=== PATIENT | female | born 1960 | race Caucasian/White ===

== ENCOUNTER 2019-07-12 11:11 | Inpatient (IN) | payer OTHER ==
[2019-07-12 11:52] VITALS: BMI 40.2
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
[2019-07-12] MEDS ORDERED: ALBUTEROL SO4 HFA INHALER IH PRN (13:24)
[2019-07-12] MEDS ORDERED: MAGNESIUM HYDROX 2400MG/30ML ORAL SUSPENSION 30 ML CUP PO PRN (13:30)
[2019-07-12] MEDS ORDERED: METHOCARBAMOL 500 MG TABLET PO PRN (13:30)
[2019-07-12] MEDS ORDERED: MENTHOL/PHENOL 1 EACH UD MM PRN (13:30)
[2019-07-12] MEDS ORDERED: MAGNESIUM CITRATE 300 ML BOTTLE PO PRN (13:30)
[2019-07-12] MEDS ORDERED: IBUPROFEN 400 MG TABLET (FP) PO PRN (13:30)
[2019-07-12] MEDS ORDERED: BISMUTH SUBSALICYLATE 262 MG/15 ML BTL PO PRN (13:30)
[2019-07-12] MEDS ORDERED: MAG HYDROX/AL HYDROX/SIMETH 30 ML UNIT-DOSE CUP PO PRN (13:30)
[2019-07-12] MEDS ORDERED: hydrOXYzine PAMOATE 25 MG CAPSULE (FP) PO PRN (13:30)
[2019-07-12] MEDS ORDERED: ACETAMINOPHEN 325 MG TABLET (FP) PO PRN ×2 (13:30)
[2019-07-12] MEDS ORDERED: MELATONIN 5 MG TABLETS PO PRN (13:30)
[2019-07-12] MEDS ORDERED: chlordiazePOXIDE HCL 25 MG CAPSULE PO PRN (13:32)
[2019-07-12] MEDS ORDERED: chlordiazePOXIDE HCL 25 MG CAPSULE PO ONE (14:00)
[2019-07-12] MEDS ORDERED: ASPIRIN 81 MG CHEWABLE TABLETS PO SCH (14:15)
[2019-07-12] MEDS ORDERED: LISINOPRIL 20 MG TABLET (FP) PO SCH (14:15)
[2019-07-12] MEDS: chlordiazePOXIDE HCL 25 MG CAPSULE PO SCH ×2 (16:38→23:56)
[2019-07-12 16:42] VITALS: BP 114/88; PULSE 125; TEMP 101.8
[2019-07-12 17:36] LABS: HEMATOCRIT 37.9 % (32.4-45.2); HEMOGLOBIN 12.5 GM/dL (10.7-15.3); MCH 31.1 pg (25.7-33.7); MCHC 32.9 g/dl (32.0-36.0); MEAN CELL VOLUME 94.3 fl (80-96); MEAN PLT VOLUME 8.1 fl (7.5-11.1); PLATELET COUNT 250 K/MM3 (134-434); RBC 4.02 M/mm3 (3.60-5.2); WHITE BLOOD COUNT 6.1 K/mm3 (4.0-10.0)
--- NOTE | 2019-07-12 17:55 | PN ---
[facility] Progress Note Note: Hx AUD, HTN, Asthma, Scoliosis, Depression Denies hx gallstones or heaptitis. Patient c/o abd pain increasing x 2 past days. Denies N/V. States last BM today. States noted bright blood in stool 4 days ago. OBJ: Abd: Obese, soft, RMQ and RUQ abd tenderness upon palpation. No guarding. No rebound. (+) Sharma's. T= 101.8 - rx'd w/ tylenol. Lungs: CTA Pulse Ox: 98% Vital Signs 07/12/19 07/12/19 07/12/19 11:33 15:01 16:35 Temperature 97.9 F 99.5 F 101.8 F H Pulse Rate 117 H 123 H 125 H Respiratory 20 18 18 Rate Blood Pressure 154/99 136/69 114/88 Lab Results WBC 6.1 K/mm3 (4.0-10.0) 07/12/19 13:55 RBC 4.02 M/mm3 (3.60-5.2) 07/12/19 13:55 Hgb 12.5 GM/dL (10.7-15.3) 07/12/19 13:55 Hct 37.9 % (32.4-45.2) 07/12/19 13:55 MCV 94.3 fl (80-96) 07/12/19 13:55 MCHC 32.9 g/dl (32.0-36.0) 07/12/19 13:55 RDW 15.0 % (11.6-15.6) 07/12/19 13:55 Plt Count 250 K/MM3 (134-434) 07/12/19 13:55 Plan: Refer to ED for evaluation. Report given to Dr. Hutchison.
[2019-07-12 18:09] LABS: ALBUMIN 3.8 g/dl (3.4-5.0); BILIRUBIN,TOTAL 1.5 mg/dL (0.2-1); BLOOD UREA NITROGEN 16.3 mg/dL (7-18); CALCIUM 9.2 mg/dL (8.5-10.1); CREATININE 1.1 mg/dL (0.55-1.3); POTASSIUM 4.2 mmol/L (3.5-5.1); TOT PROT 6.9 g/dl (6.4-8.2)
[2019-07-12] MEDS ORDERED: THIAMINE HCL 100 MG TABLET (FP) PO SCH (22:00)
[2019-07-12] MEDS ORDERED: ATORVASTATIN CA 40 MG TABLET (FP) PO SCH (22:00)
[2019-07-13] MEDS ORDERED: PRENATAL VITAMINS W/ FOLIC ACID TABLET (FP) PO SCH (10:00)
[2019-07-14] MEDS ORDERED: chlordiazePOXIDE HCL 25 MG CAPSULE PO SCH (05:00)
[2019-07-15] MEDS ORDERED: chlordiazePOXIDE HCL 10 MG CAPSULE PO PRN
[2019-07-15] MEDS ORDERED: chlordiazePOXIDE HCL 10 MG CAPSULE PO SCH (05:00)
[2019-07-16] MEDS ORDERED: chlordiazePOXIDE HCL 10 MG CAPSULE PO SCH (05:00)
== END 2019-07-13 08:20 | disposition short-term general hospital (02) | DRG 897 ==
LOC: YASAS 11:11 → Y6N 14:08
PROVIDERS: ADMIT Allergy & Immunology; ATTEND Allergy & Immunology
PROC: HZ2ZZZZ Detoxification Services for Substance Abuse Treatment (ICD-10-PCS; principal; 2019-07-12)
DX: F10.230 Alcohol dependence with withdrawal, uncomplicated (principal); K62.5 Hemorrhage of anus and rectum; Z68.41 Body mass index [BMI] 40.0-44.9, adult; F41.9 Anxiety disorder, unspecified; F32.9 Major depressive disorder, single episode, unspecified; I10 Essential (primary) hypertension; R10.9 Unspecified abdominal pain; I25.2 Old myocardial infarction; M41.9 Scoliosis, unspecified; R00.0 Tachycardia, unspecified; E66.9 Obesity, unspecified; R26.2 Difficulty in walking, not elsewhere classified; Z99.89 Dependence on other enabling machines and devices; Z87.891 Personal history of nicotine dependence
CPT/HCPCS: 36415; 80053; 85027; 86593

== ENCOUNTER 2019-07-12 18:35 | Inpatient (IN) | payer OTHER ==
--- NOTE | 2019-07-12 19:04 | PDOC ---
History of Present Illness - General Chief Complaint: Pain Stated Complaint: ABDOMINAL PAIN,FEVER Time Seen by Provider: 07/12/19 18:59 - History of Present Illness Initial Comments: Zainab Ruffin is a 59yo woman with a PMH of CAD s/p HI (5 years ago), HTN, HLD, asthma, hepC s/p treatment (2004), depression/anxiety, substance abuse ( currently alcohol w/ 2 bottles of wine plus vodka daily, previously cocaine prior to 1994, IV heroin s/p successful taper of methadone 2017) who was sent fo detox with abdominal pain, nausea, vomting, and fever. She states that the pain, nausea, and vomiting have been present for several days. She feels that the pain worsens when using her abdominal muscles e.g when sitting up. She has not noticed any association with eating, vomiting, or bowel movements. She did not realize she had any fever at home, but she was told that she had a temperature of 101F at detox today. She took acetaminophen for the fever, but it did not resolve the pain. Ms Ruffin is not aware of any history of gallstones but does report that she has sludge on imaging in the past. Past History - Past Medical History Allergies/Adverse Reactions: Allergies Allergy/AdvReac Type Severity Reaction Status Date / Time sertraline [From Zoloft] Allergy seizure Verified 07/12/19 18:58 Home Medications: Ambulatory Orders Albuterol Sulfate Inhaler - [Ventolin Hfa Inhaler -] 1 - 2 inh PO QID PRN Aspirin [ASA -] 81 mg PO DAILY 07/12/19 Atorvastatin Calcium 40 mg PO HS 07/12/19 Bupropion HCl [Wellbutrin -] 150 mg PO DAILY 07/12/19 Clonazepam [Klonopin] 1 mg PO TID PRN 07/12/19 Hydroxyzine HCl 50 mg PO DAILY PRN 07/12/19 Lamotrigine [Lamictal] 200 mg PO DAILY 07/12/19 Lisinopril [Prinivil -] 40 mg PO DAILY 07/12/19 Paroxetine HCl [Paxil] 20 mg PO DAILY 07/12/19 Asthma: Yes Cardiac Disorders: No COPD: Yes Diabetes: No GI Disorders: No Disorders: No HTN: Yes Hypercholesterolemia: Yes Kidney Stones: No Psychiatric Problems: Yes (Depression/Anxiety, PTSD) Seizures: No - Reproductive History PID: No - Psycho Social/Smoking Cessation Hx Smoking History: Current every day smoker Have you smoked in the past 12 months: Yes Number of Cigarettes Smoked Daily: 15 If you are a former smoker, when did you quit?: 2 weeks ago as per pt Information on smoking cessation initiated: No Hx Alcohol Use: Yes (h/o alcohol abuse) Drug/Substance Use Hx: No (denies) Hx Substance Use Treatment: Yes Review of Systems - Review of Systems Comments:: General: + fevers, no chills, no weight or appetite change, no malaise HEENT: No changes in vision, no changes in hearing, no congestion, no sore throat CV: No chest pain, no palpitations, no LE edema Pulm: No SOB, no cough, no wheezing GI: +Nausea/vomiting, +abd pain, no change in bowel habits, no melena : No frequency, no urgency, no dysuria Musc: No back pain, no joint swelling, no recent injury Skin: No rash, no lesions, no erythema Endo: No excessive thirst, no heat/cold intolerance Heme: No unusual bruising or bleeding, no swollen glands Neuro: No syncope, no numbness/tingling, no focal weakness Vasc: No claudication Psych: No recent change in mood, no SI or HI *Physical Exam - Vital Signs Last Vital Signs Temp Pulse Resp BP Pulse Ox 98.5 F 113 H 18 116/51 L 98 07/12/19 18:51 07/12/19 18:51 07/12/19 18:51 07/12/19 18:51 07/12/19 18:51 - Physical Exam General: Comfortable, no acute distress HEENT: Atraumatic, PERRL, EOMI, MMM, voice normal, normal neck ROM Cards: RRR, no murmur appreciated Pulm: Comfortable on room air, clear to auscultation bilaterally Abd: Soft, nondistended. TTP in upper abdomen, R>>L. +Sharma's sign Ext: Atraumatic. No LE edema. ROM intact. WWP Skin: Erythematouns rash on extensor surfaces of BUE Neuro: A&Ox3, CN grossly intact, normal speech, motor/sensory grossly intact and symmetric Psych: Mood appropriate to situation ED Treatment Course - LABORATORY CBC & Chemistry Diagram: 07/12/19 19:30 07/12/19 19:30 Medical Decision Making - Medical Decision Making 07/12/19 19:59 Zainab Ruffin is a 59yo woman with a PMH of CAD s/p HI (5 years ago), HTN, HLD, asthma, hepC s/p treatment (2004), depression/anxiety, substance abuse ( currently alcohol w/ 2 bottles of wine plus vodka daily, previously cocaine prior to 1994, IV heroin s/p successful taper of methadone 2017) who was sent fo detox with abdominal pain, nausea, vomiting, and fever for several days. - Tachycardic, fever documented at detox. Septic workup ordered - RUQ pain with +Sharma's sign. Suspect cholecystitis. However, also moderate LUQ and epigastric pain, given h/o alcohol abuse may have pancreatitis. Less likely gastritis. No respiratory symptoms suggesting influenza - Lipase added - Given acetaminophen already. Giving toradol for continued pain - IVF - Imaging to be determined, US vs CT, depending on labs 07/12/19 20:45 - US ordered by Dr Bahena, pt taken for imaging - CBC unremarkable. Trop negative. Lipase WNL. Remainder of labs pending 07/12/19 22:08 - Labs without acute abnormalities other than elevated lactate of 3. T-bili was 1.5 on detox admission, now 1.0. - Abd US completed. No s/s of cholecystitis. Borderline duct dilation at 0.7 - Pt still with significant pain. Morphine given - On additional discussion w/ pt, she reports that she had a frequent cough for about a week after recently quitting smoking. The abdominal pain worsens significantly when she coughs. Possible muscle strain secondary to coughing. - Will repeat lactate. If improved after IVF and pt continues to feel well, will most likely send back to detox. 07/12/19 23:52 - UA w/ bacteria but no notable WBC and leuk esterase negative. Asymptomatic, will not treat - Lactate increased to 4.0 - Will need CT for additional evaluation, additional IVF - Sign out given to Dr Bahena for the remainder of ED care Discussed with Dr Esperanza Chan PGY2 Discharge - Discharge Information Problems reviewed: Yes Clinical Impression/Diagnosis: Upper abdominal pain Condition: Stable Disposition: HOME - Admission No - Follow up/Referral Referrals: [facility] [place] [facility] [Provider Group] - Patient Discharge Instructions Additional Instructions: Discharge Instructions: You were seen in the emergency department for abdominal pain. Your ultrasound and blood tests did not show any concerning findings. Your pain may be due to a muscle strain from your recent coughing. Home Care and Follow Up: - You may use over the counter medications as needed for pain at home. 650- 1000mg acetaminophen (Tylenol) or 600mg ibuprofen (Motrin or Advil) can be used every 6-8 hours. If needed for continued pain, these medications may be alternated every 3-4 hours. For example, if you take ibuprofen at 9am, you may take acetaminophen at noon, ibuprofen at 3pm, etc. - It is strongly recommended that you take ibuprofen with food to help prevent stomach irritation. - Try using an ice pack for 20 minutes every hour or a heating pad for additional pain control. - Do not stop moving around. As much as you can tolerate, continue to do light exercise and stretching exercises. Increase your activity level as much as you can tolerate daily. - If your pain does not improve over the next week, see your regular doctor for follow up. If you need a doctor, you have been given contact information for the [facility]. - Seek immediate medical care if you have significant worsening of your symptoms , pain when you eat, you become dehydrated, or you have any other medical emergency. - Post Discharge Activity
--- NOTE | 2019-07-12 19:26 | PDOC ---
Attending Attestation - Resident Resident Name: Zarina Chan - ED Attending Attestation I have performed the following: I have examined & evaluated the patient, The case was reviewed & discussed with the resident, I agree w/resident's findings & plan - HPI HPI: 07/12/19 21:48 Pt comes with RUQ pain. She is afebrile and she is an alcoholic currently in [facility] detox. Pt has decreased oral intake; she has been moving her bowels and not vomiting. Pt is not jaundiced and she appears well. - Physicial Exam PE: 07/12/19 21:49 Pt is A+Ox3 minimal distress adbominal RUQ discomfort No rebound and no guarding No flank pain. No rashes on trunk. - Medical Decision Making 07/12/19 22:12 Pt has normal labs; BUN/CR prerenal; she will be hydrated and her elevated lactic acid of 2.9 will be repeated. 07/12/19 22:13 Pt has no alcohol level; she was treated with morphine for her abd pain and she is feeling better; she will go back to [facility] after the repeat lactic acid. 07/12/19 22:59 Awaiting repeat lactic acid; ready to go back to [facility] if lactic is normal 07/12/19 23:58 Lactic acid went up to 4.[address] a [address] scan and likely be admitted into the hospital 07/13/19 02:32 Patient Name: AALIYAH PATRICK THIS IS A PRELIMINARY REPORT FROM [facility] DATE OF SERVICE: 2019-07-13 01:10:36 IMAGES: [id number] EXAM: ABDOMEN \T\ PELVIS CT WITH CONTR HISTORY: Abdominal pain COMPARISON: None. FINDINGS: Lung bases are clear. The visualized cardiac chambers are normal size and configuration. Normal liver, gallbladder, pancreas, spleen, adrenal glands and kidneys. There is a small bowel obstruction with small bowel dilated to 3.0 cm. No abscess or free air. Transition point appears to be in the anterior mid pelvis, without mass or hernia. Adhesions are considered. No colonic inflammation or distention with moderate stool in the proximal colon, suggesting early or partial SBO. There is no aortic aneurysm. There is no significant retroperitoneal lymphadenopathy. There is no evidence of appendicitis, although the appendix not clearly visualized. The uterus and adnexal structures are normal. Urinary bladder is unremarkable. There is no pelvic free fluid. No discrete pelvic lymphadenopathy is identified. Small fat containing umbilical and left inguinal hernias are noted. Moderate scoliosis is noted IMPRESSION: Early or partial SBO with mid pelvic transition point, possibly due to adhesions.
[2019-07-12] MEDS ORDERED: KETOROLAC TROMETHAMINE 15 MG/ML VIAL IVPUSH ONE (19:28)
[2019-07-12] MEDS ORDERED: KETOROLAC TROMETHAMINE 15 MG/ML VIAL ONE (19:54)
[2019-07-12 20:03] LABS: BASO % 1.2 % (0-2.0); EOS % 1.8 % (0-4.5); HEMATOCRIT 33.3 % (32.4-45.2); HEMOGLOBIN 10.9 GM/dL (10.7-15.3); LYMPH % 35.2 % (8-40); MCHC 32.7 g/dl (32.0-36.0); MEAN CELL VOLUME 94.8 fl (80-96); MEAN PLT VOLUME 7.6 fl (7.5-11.1); MONO % 12.3 % (3.8-10.2); NEUT % 49.5 % (42.8-82.8); PLATELET COUNT 207 K/MM3 (134-434); RBC 3.52 M/mm3 (3.60-5.2); RDW 14.7 % (11.6-15.6); WHITE BLOOD COUNT 5.2 K/mm3 (4.0-10.0)
[2019-07-12 20:12] LABS: VENOUS PC02 36.1 mmHg (38-52); VENOUS PH 7.42 (7.31-7.41)
[2019-07-12 20:35] LABS: LIPASE 149 U/L (73-393)
[2019-07-12 20:38] LABS: ALBUMIN 3.3 g/dl (3.4-5.0); ALK PHOS 96 U/L (45-117); ANION GAP 8 MMOL/L (8-16); BLOOD UREA NITROGEN 18.5 mg/dL (7-18); CALCIUM 8.7 mg/dL (8.5-10.1); CHLORIDE 110 mmol/L (98-107); CO2 23 mmol/L (21-32); CREATININE 1.5 mg/dL (0.55-1.3); GLUCOSE,RANDOM 146 mg/dL (74-106); POTASSIUM 4.2 mmol/L (3.5-5.1); SGOT/AST 81 U/L (15-37); SGPT/ALT 84 U/L (13-61); SODIUM 141 mmol/L (136-145)
[2019-07-12 20:40] LABS: INR 0.99 (0.83-1.09); PROTHROMBIN TIME (PATIENT) 11.7 SEC (9.7-13.0)
[2019-07-12 20:43] LABS: ACTIVATED PTT 26.1 SECONDS (25.2-36.5)
[2019-07-12] MEDS ORDERED: SODIUM CHLORIDE 0.9% 500 ML INFUS.BAG IV ONE ×2 (20:55→23:59)
[2019-07-12] MEDS ORDERED: MORPHINE SULFATE 2 MG/ML VIAL IVPUSH ONE (21:28)
[2019-07-12] MEDS ORDERED: MORPHINE SULFATE 2 MG/ML VIAL ONE (21:29)
[2019-07-12] MEDS ORDERED: PARoxetine HCL 20 MG TABLET PO ONE (21:36)
[2019-07-12] MEDS ORDERED: lamoTRIgine 100 MG TABLET ONE (21:43)
[2019-07-12] MEDS ORDERED: PARoxetine HCL 10 MG TABLET ONE (21:44)
[2019-07-12] MEDS ORDERED: buPROPion HCL 100 MG TABLET ONE (21:44)
[2019-07-12] MEDS: buPROPion HCL 75 MG TABLET PO SCH (21:48)
[2019-07-12 23:17] LABS: EPI CELLS 10.4 /HPF (0-5/HPF); HYALINE CASTS 30 /lpf (0-8); URINE APPEARANCE CLOUDY; URINE BACTERIA 406.1 /hpf (NEGATIVE); URINE BILIRUBIN 1+ (NEGATIVE); URINE COLOR DK YELLOW; URINE GLUCOSE (UA) NEGATIVE (NEGATIVE); URINE KETONE TRACE (NEGATIVE); URINE LEUK ESTERASE NEGATIVE (NEGATIVE); URINE NITRITE NEGATIVE (NEGATIVE); URINE PROTEIN 1+ (NEGATIVE); URINE RBC 1 /hpf (0-4); URINE WBC 6 /hpf (0-5)
--- NOTE | 2019-07-13 01:03 | PDOC ---
*Physical Exam - Vital Signs Last Vital Signs Temp Pulse Resp BP Pulse Ox 98.4 F 98 H 18 112/63 98 07/12/19 21:35 07/12/19 22:03 07/12/19 22:03 07/12/19 22:03 07/12/19 22:03 - Physical Exam 07/13/19 01:00 GENERAL: Awake, alert, and fully oriented, in no acute distress HEAD: No signs of trauma, normocephalic, atraumatic EYES: PERRLA, EOMI, sclera anicteric, conjunctiva clear ENT: Hearing grossly normal, nares patent, oropharynx clear without exudates. Moist mucosa NECK: Normal ROM, supple, no lymphadenopathy, JVD, or masses LUNGS: No distress, speaks full sentences, clear to auscultation bilaterally HEART: Regular rate and rhythm, normal S1 and S2, no murmurs, rubs or gallops, peripheral pulses normal and equal bilaterally. ABDOMEN: + RUQ/epigastria and RLQ abdominal ttp.Soft, nontender, normoactive bowel sounds. No guarding, no rebound. No masses. Neg CVA ttp. EXTREMITIES : Normal inspection, Normal range of motion, no edema. No clubbing or cyanosis NEUROLOGICAL: Cranial nerves II through XII grossly intact. Normal speech, normal gait, no focal sensorimotor deficits SKIN: Warm, Dry, normal turgor, no rashes or lesions noted ED Treatment Course - LABORATORY CBC & Chemistry Diagram: 07/12/19 19:30 07/12/19 19:30 - ADDITIONAL ORDERS Additional order review: Laboratory Results 07/12/19 07/12/19 07/12/19 22:51 22:45 19:30 PT with INR INR PTT (Actin FS) VBG pH 7.42 H POC VBG pCO2 36.1 L POC VBG pO2 118 H VBG HCO3 23.1 VBG O2 Sat (Ena) 98.5 H VBG Base Excess -0.5 Sodium Potassium Chloride Carbon Dioxide Anion Gap BUN Creatinine Est GFR (CKD-EPI)AfAm Est GFR (CKD-EPI)NonAf Random Glucose Lactic Acid 4.0 H* Calcium Total Bilirubin AST ALT Alkaline Phosphatase Troponin I Total Protein Albumin Lipase Urine Color Dk yellow Urine Appearance Cloudy Urine pH 6.0 Ur Specific [place] 1.037 H Urine Protein 1+ H Urine Glucose (UA) Negative Urine Ketones Trace H Urine Blood Negative Urine Nitrite Negative Urine Bilirubin 1+ H Urine Urobilinogen 1.0 Ur Leukocyte Esterase Negative Urine WBC (Auto) 6 Urine RBC (Auto) 1 Urine Casts (Auto) 30 U Epithel Cells (Auto) 10.4 Urine Bacteria (Auto) 406.1 Alcohol, Quantitative 07/12/19 07/12/19 07/12/19 19:30 19:30 19:30 PT with INR INR PTT (Actin FS) VBG pH POC VBG pCO2 POC VBG pO2 VBG HCO3 VBG O2 Sat (Ena) VBG Base Excess Sodium 141 Potassium 4.2 Chloride 110 H Carbon Dioxide 23 Anion Gap 8 BUN 18.5 H Creatinine 1.5 H Est GFR (CKD-EPI)AfAm 43.74 Est GFR (CKD-EPI)NonAf 37.74 Random Glucose 146 H Lactic Acid 2.9 H* Calcium 8.7 Total Bilirubin 1.0 AST 81 H ALT 84 H Alkaline Phosphatase 96 Troponin I < 0.02 Total Protein 6.0 L Albumin 3.3 L Lipase 149 Urine Color Urine Appearance Urine pH Ur Specific [place] Urine Protein Urine Glucose (UA) Urine Ketones Urine Blood Urine Nitrite Urine Bilirubin Urine Urobilinogen Ur Leukocyte Esterase Urine WBC (Auto) Urine RBC (Auto) Urine Casts (Auto) U Epithel Cells (Auto) Urine Bacteria (Auto) Alcohol, Quantitative < 3 07/12/19 19:30 PT with INR 11.70 INR 0.99 PTT (Actin FS) 26.1 VBG pH POC VBG pCO2 POC VBG pO2 VBG HCO3 VBG O2 Sat (Ena) VBG Base Excess Sodium Potassium Chloride Carbon Dioxide Anion Gap BUN Creatinine Est GFR (CKD-EPI)AfAm Est GFR (CKD-EPI)NonAf Random Glucose Lactic Acid Calcium Total Bilirubin AST ALT Alkaline Phosphatase Troponin I Total Protein Albumin Lipase Urine Color Urine Appearance Urine pH Ur Specific [place] Urine Protein Urine Glucose (UA) Urine Ketones Urine Blood Urine Nitrite Urine Bilirubin Urine Urobilinogen Ur Leukocyte Esterase Urine WBC (Auto) Urine RBC (Auto) Urine Casts (Auto) U Epithel Cells (Auto) Urine Bacteria (Auto) Alcohol, Quantitative 07/12/19 19:30 RBC 3.52 L MCV 94.8 MCHC 32.7 RDW 14.7 MPV 7.6 Neutrophils % 49.5 Lymphocytes % 35.2 Monocytes % 12.3 H Eosinophils % 1.8 Basophils % 1.2 - RADIOLOGY Radiology Studies Ordered: Category Date Time Status ABDOMEN US -LIMITED [US] Stat Ultrasound 07/12/19 19:57 Completed 07/13/19 02:09 Patient Information: : 1960 Order Type: Preliminary Name: CELINA FISCHER Sex: F Study Description: CT ABDOMEN AND PELVIS Modality: CT Location: [facility] Referring Physician: CATHRYN ZAPIEN Comments: Omega Chapman MD wrote on Jul 13, 2019 at 01:53 AM: Referring Physician: CATHRYN ZAPIEN Patient Name: AALIYAH PATRICK THIS IS A PRELIMINARY REPORT FROM IMAGING TOPOGRAPHY TECHNICIAN DATE OF SERVICE: 2019-07-13 01:10:36 IMAGES: [id number] EXAM: ABDOMEN \T\ PELVIS CT WITH CONTR HISTORY: Abdominal pain COMPARISON: None. FINDINGS: Lung bases are clear. The visualized cardiac chambers are normal size and configuration. Normal liver, gallbladder, pancreas, spleen, adrenal glands and kidneys. There is a small bowel obstruction with small bowel dilated to 3.0 cm. No abscess or free air. Transition point appears to be in the anterior mid pelvis, without mass or hernia. Adhesions are considered. No colonic inflammation or distention with moderate stool in the proximal colon, suggesting early or partial SBO. There is no aortic aneurysm. There is no significant retroperitoneal lymphadenopathy. There is no evidence of appendicitis, although the appendix not clearly visualized. The uterus and CONFIDENTIALITY NOTICE: This information is intended only for the use of the recipient(s) named above. If you are not the intended recipient, or a person responsible for delivering it to the intended recipient, you are hereby notified that any disclosure, copying, distribution or use of any of the information contained in or attached to this transmission is STRICTLY PROHIBITED. If you have received this transmission in error, please immediately notify [facility] [employer] [employer] and destroy the original transmission and its attachments without saving them in any manner [address] [facility] [employer] [facility] [address] [place] [address] Phone: [phone]) Fax: Email: [email or web address] [email or web address] Patient Information: : 1960 Order Type: Preliminary Name: CELINA FISCHER Sex: F Study Description: CT ABDOMEN AND PELVIS Modality: CT Location: [facility] Referring Physician: CATHRYN ZAPIEN adnexal structures are normal. Urinary bladder is unremarkable. There is no pelvic free fluid. No discrete pelvic lymphadenopathy is identified. Small fat containing umbilical and left inguinal hernias are noted. Moderate scoliosis is noted IMPRESSION: Early or partial SBO with mid pelvic transition point, possibly due to adhesions. One or more of the following dose reduction techniques were used: automated exposure control, adjustment of the mA and/or kV according to patient size, use of iterative reconstructive technique. THIS DOCUMENT HAS BEEN ELECTRONICALLY SIGNED Antonino Chapman MD 07/13/2019 01:51 NANNETTE Moore. Please call [facility] [employer] As[employer]er [phone]) with questions. Omega Chapman MD Clinicians - Please contact [facility] [employer] [employer] with further questions - Medications Given in the ED: ED Medications Discontinued Medications Generic Name Dose Route Start Last Admin Trade Name Sara PRN Reason Stop Dose Admin Ketorolac Tromethamine 15 mg 07/12/19 19:28 07/12/19 20:00 Toradol Injection - IVPUSH 07/12/19 19:29 15 mg ONCE ONE Administration Lamotrigine 200 mg 07/12/19 21:36 07/12/19 21:48 Lamictal - PO 07/12/19 21:37 200 mg ONCE ONE Administration Morphine Sulfate 2 mg 07/12/19 21:28 07/12/19 21:34 Morphine Sulfate IVPUSH 07/12/19 21:29 2 mg ONCE ONE Administration Paroxetine HCl 20 mg 07/12/19 21:36 07/12/19 21:48 Paxil - PO 07/12/19 21:37 20 mg ONCE ONE Administration Sodium Chloride 1,000 ml 07/12/19 20:55 07/12/19 21:16 Normal Saline - IV 07/12/19 20:56 1,000 ml ONCE ONE Administration Sodium Chloride 1,000 ml 07/12/19 23:59 07/13/19 00:02 Normal Saline - IV 07/13/19 00:00 1,000 ml ONCE ONE Administration Medical Decision Making - Medical Decision Making 07/13/19 01:03 59 yo F with h/o CAD s/p CO, HTN, HLD, Hep C (Treatment 2004), asthma, depression, polysubstance abuse, Etoh abuse, who arrives from [facility] ([facility] detox/[facility]) with one week of RUQ and epigastria abdominal pain, vomiting, and 2 days of fever. HR 125, and Temp 101.8 on arrival. Vitals otherwise unremarkable. + RUQ/epigastria ttp on exam. CBC unremarkable. CMP notable for BUN/Cr: 18.5/1.5 (~1.1). LA~2.9, UA with trace ketones. Etoh negative. Pt. has received Morphine, Toradol, NS 2 L . Pending CTAP for further eval. ED Course: Patient with 2/4 SIRS criteria (tachycardia, febrile). Vanc zosyn Patient with persistent RUQ, and RLQ abdominal ttp on reassessment. Absent rigid abdomen or guarding. Spoke to Jd (biometric technician) about elevated creatinine, and told him that it is ok to proceed with IV contrast, with plan of aggressive post contrast hydration 07/13/19 02:09 CT AP: IMPRESSION: Early or partial SBO with mid pelvic transition point, possibly due to adhesions.There is a small bowel obstruction with small bowel dilated to 3.0 cm. No abscess or free air. Transition point appears to be in the anterior mid pelvis, without mass or hernia. Adhesions are considered. No colonic inflammation or distention with moderate stool in the proximal colon, suggesting early or partial SBO. Patient with h/o 3 c-sections 07/13/19 02:[address] Suresh(surgery senior sales operations manager), [phone], awaiting call back Pt. endorsed to Dr. Suresh 07/13/19 02:24 Plan to admit for dehydration, elevated LA, Sepsis, and possible SBO/partial. 07/13/19 02:50 [facility]. [facility]. Endorsed to Dr. Catalan Discharge - Discharge Information Problems reviewed: Yes Clinical Impression/Diagnosis: Upper abdominal pain, Elevated lactic acid level, SBO (small bowel obstruction) Sepsis Qualifiers: Sepsis type: sepsis due to unspecified organism Sepsis acute organ dysfunction status: unspecified Qualified Code(s): A41.9 - Sepsis, unspecified organism Condition: Stable Disposition: HOME - Admission Yes - Follow up/Referral Referrals: [facility] [place] [Provider Group] - Patient Discharge Instructions Additional Instructions: Discharge Instructions: You were seen in the emergency department for abdominal pain. Your ultrasound and blood tests did not show any concerning findings. Your pain may be due to a muscle strain from your recent coughing. Home Care and Follow Up: - You may use over the counter medications as needed for pain at home. 650- 1000mg acetaminophen (Tylenol) or 600mg ibuprofen (Motrin or Advil) can be used every 6-8 hours. If needed for continued pain, these medications may be alternated every 3-4 hours. For example, if you take ibuprofen at 9am, you may take acetaminophen at noon, ibuprofen at 3pm, etc. - It is strongly recommended that you take ibuprofen with food to help prevent stomach irritation. - Try using an ice pack for 20 minutes every hour or a heating pad for additional pain control. - Do not stop moving around. As much as you can tolerate, continue to do light exercise and stretching exercises. Increase your activity level as much as you can tolerate daily. - If your pain does not improve over the next week, see your regular doctor for follow up. If you need a doctor, you have been given contact information for the [facility]. - Seek immediate medical care if you have significant worsening of your symptoms , pain when you eat, you become dehydrated, or you have any other medical emergency. - Post Discharge Activity
[2019-07-13] MEDS ORDERED: LACTATED RINGERS SOLUTION 1,000 ML/1,000 ML INFUS.BAG IV SCH (01:15)
[2019-07-13] MEDS ORDERED: PIPERACILLIN/TAZOB 4.5 GM 4.5 GM in DEXTROSE 5%-WATER 100 ML IVPB ONE (02:10)
[2019-07-13] MEDS ORDERED: VANCOMYCIN 1 GM in D5W (PRE-DOCKED) 1,000 MG/250 ML IVPB ONE (02:11)
[2019-07-13] MEDS ORDERED: PIPERACILLIN/TAZOB 4.5 GM 4.5 GM/100 ML BAG IVPB ONE (02:16)
[2019-07-13] MEDS ORDERED: VANCOMYCIN 1 GRAM (PRE-DOCKED) 1,000 MG/250 ML BAG IVPB ONE (02:43)
--- NOTE | 2019-07-13 04:52 | PN ---
Teaching Attending Note Name of Resident: Watson Catalan ATTENDING PHYSICIAN STATEMENT I saw and evaluated the patient. I reviewed the resident's note and discussed the case with the resident. I agree with the resident's findings and plan as documented. SUBJECTIVE: 59-year-old woman, chronic alcohol abuser drinks 2 bottles of wine and 1 large bottle of vodka per day, sent from detox to hospital because she was complaining of severe abdominal pain for about 1 day, worse in her right upper quadrant. Patient reports several episodes of nonbloody nonbilious vomiting per day. She is having regular bowel movements with her last BM yesterday morning. Says her stools are formed, nonbloody. OBJECTIVE: Last Vital Signs Temp Pulse Resp BP Pulse Ox 98.2 F 102 H 20 132/52 L 96 07/13/19 04:08 07/13/19 04:08 07/13/19 04:08 07/13/19 04:08 07/13/19 04:08 GENERAL: Well developed, well nourished. Awake and alert. No acute distress.Non-tremulous HEENT: Normocephalic, atraumatic. PERRLA, EOMI. No conjunctival pallor. Sclera are non- icteric. Moist mucous membranes. Oropharynx is clear. NECK: Supple. Full ROM. No JVD. Carotid pulses 2+ and symmetric, without bruits. No thyromegaly. No lymphadenopathy. CARDIOVASCULAR: Regular rate and rhythm. No murmurs, rubs, or gallops. Distal pulses are 2+ and symmetric. PULMONARY: No evidence of respiratory distress. Lungs clear to auscultation bilaterally. No wheezing, rales or rhonchi. ABDOMINAL: Soft. Obese, Right upper quadrant tenderness to palpation, no rebound tenderness. Non-distended. No organomegaly. Normoactive bowel sounds. MUSCULOSKELETAL Normal range of motion at all joints. No bony deformities or tenderness. No CVA tenderness. EXTREMITIES: No cyanosis. No clubbing. No edema. No calf tenderness. SKIN: Left Leg ecchymosis NEUROLOGICAL: Alert, awake, appropriate. Cranial nerves 2-12 intact. No deficits to light touch and temperature in face, upper extremities and lower extremities. No motor deficits in the in face, upper extremities and lower extremities. Normoreflexic in the upper and lower extremities. PSYCHIATRIC: Cooperative. Good eye contact. Appropriate mood and affect. Abnormal Lab Results 07/12/19 07/12/19 07/12/19 19:30 19:30 19:30 RBC 3.52 L Monocytes % 12.3 H VBG pH POC VBG pCO2 POC VBG pO2 VBG O2 Sat (Ena) Chloride 110 H BUN 18.5 H Creatinine 1.5 H Random Glucose 146 H Lactic Acid 2.9 H* AST 81 H ALT 84 H Total Protein 6.0 L Albumin 3.3 L Ur Specific [place] Urine Protein Urine Ketones Urine Bilirubin 07/12/19 07/12/19 07/12/19 19:30 22:45 22:51 RBC Monocytes % VBG pH 7.42 H POC VBG pCO2 36.1 L POC VBG pO2 118 H VBG O2 Sat (Ena) 98.5 H Chloride BUN Creatinine Random Glucose Lactic Acid 4.0 H* AST ALT Total Protein Albumin Ur Specific [place] 1.037 H Urine Protein 1+ H Urine Ketones Trace H Urine Bilirubin 1+ H CT of abdomen pelvis: Lung bases are clear. The visualized cardiac chambers are normal size and configuration. Normal liver, gallbladder, pancreas, spleen, adrenal glands and kidneys. There is a small bowel obstruction with small bowel dilated to 3.0 cm. No abscess or free air. Transition point appears to be in the anterior mid pelvis, without mass or hernia. Adhesions are considered. No colonic inflammation or distention with moderate stool in the proximal colon, suggesting early or partial SBO. There is no aortic aneurysm. There is no significant retroperitoneal lymphadenopathy. There is no evidence of appendicitis, although the appendix not clearly visualized. The uterus and adnexal structures are normal. Urinary bladder is unremarkable. There is no pelvic free fluid. No discrete pelvic lymphadenopathy is identified. Small fat containing umbilical and left inguinal hernias are noted. Moderate scoliosis is noted IMPRESSION: Early or partial SBO with mid pelvic transition point, possibly due to adhesions. ASSESSMENT AND PLAN: 59-year-old woman chronic EtOH abuser with pending EtOH withdrawal with severe abdominal pain, transaminitis, Lactic acidosis, KAVITHA. Uncertain cause of abdominal pain, suspect possible gastritis from chronic EtOH abuse. High lactate is unexplained, no evidence of infection however would treat empirically until blood cultures come back negative. CT of abdomen pelvis suggested possible SBO however clinically patient does not appear to have it as she is having regular bowel movements, soft abdomen, positive bowel sounds. Admit to [facility] Follow-up blood cultures Empiric Zosyn Zofran IV as needed if nausea or vomiting Check electrolytes and replete PRN ID consult Trend lactic acid Patient may benefit from GI evaluation for possible endoscopy to rule out EtOH induced esophagitis versus gastritis Protonix 40 mg IV twice daily IV fluid hydration CIWA protocol Thiamine and folate and multivitamin Banana bag Avoid NSAIDs Librium protocol Urine toxicology screen Chest x-ray Surgery consult to rule out SBO Heparin subcutaneously for DVT prophylaxis
[2019-07-13] MEDS ORDERED: SODIUM CHLORIDE 1,000 ML IV SCH (05:00)
[2019-07-13] MEDS ORDERED: ONDANSETRON 4 MG/2 ML VIAL IVPUSH PRN (05:01)
[2019-07-13] MEDS ORDERED: MORPHINE SULFATE 2 MG/ML VIAL IVPUSH PRN (05:02)
[2019-07-13] MEDS ORDERED: chlordiazePOXIDE HCL 25 MG CAPSULE PO PRN (05:07)
[2019-07-13] MEDS ORDERED: chlordiazePOXIDE HCL 25 MG CAPSULE PO ONE (05:07)
--- NOTE | 2019-07-13 05:49 | HP ---
CHIEF COMPLAINT: abdominal pain PCP: none HISTORY OF PRESENT ILLNESS: 59 yo f w/ pmh CAD, HTN, Asthma, HCV, who comes into the ED from [facility] ( ETOH detox) for worsening abdominal pain and fever. The patient describes a right sided abdominal pain which she has had for the last 3 weeks. The pain has been progressively worsening since then and got acutely worse over the past few days. the pain is also associated with dry heaving and vomiting approx 2 times per day. The patient also endorses 5 days of BRBPR which stopped 2 days ago. She states that she would see blood on her toilet paper after she went to the bathroom, but no blood in the toilet. She endorses drinking 2 large bottles a wine and almost a handle of vodka daily. her last drink was night. In the ED, the patient was found to be afebrile, but tachycardia with a lactic acidosis which peaked at 4 before normalizing with hydration. a CT of the abdomen and pelvis w/ contrast showed a possible early or partial SBO. Surgery was consulted from the ED and will assess the patient in the morning. Recent Travel: none PAST MEDICAL HISTORY: see hpi PAST SURGICAL HISTORY: x2 Social History: Smoking: denies Alcohol: see hpi Drugs: denies Allergies sertraline [From Zoloft] Allergy (Verified 07/12/19 18:58) seizure HOME MEDICATIONS: Home Medications Medication Instructions Recorded Albuterol Sulfate Inhaler - 1 - 2 inh PO QID PRN 07/12/19 [Ventolin Hfa Inhaler -] Aspirin [ASA -] 81 mg PO DAILY 07/12/19 Atorvastatin Calcium 40 mg PO HS 07/12/19 Bupropion HCl [Wellbutrin -] 150 mg PO DAILY 07/12/19 Clonazepam [Klonopin] 1 mg PO TID PRN 07/12/19 Hydroxyzine HCl 50 mg PO DAILY PRN 07/12/19 Lamotrigine [Lamictal] 200 mg PO DAILY 07/12/19 Lisinopril [Prinivil -] 40 mg PO DAILY 07/12/19 Paroxetine HCl [Paxil] 20 mg PO DAILY 07/12/19 REVIEW OF SYSTEMS CONSTITUTIONAL: Absent: fever, chills, diaphoresis, generalized weakness, malaise, loss of appetite, weight change HEENT: Absent: rhinorrhea, nasal congestion, throat pain, throat swelling, difficulty swallowing, mouth swelling, ear pain, eye pain, visual changes CARDIOVASCULAR: Absent: chest pain, syncope, palpitations, irregular heart rate, lightheadedness , peripheral edema RESPIRATORY: Absent: cough, shortness of breath, dyspnea with exertion, orthopnea, wheezing, stridor, hemoptysis GASTROINTESTINAL: Absent: constipation, GENITOURINARY: Absent: dysuria, frequency, urgency, hesitancy, hematuria, flank pain, genital pain MUSCULOSKELETAL: Absent: myalgia, arthralgia, joint swelling, back pain, neck pain SKIN: Absent: rash, itching, pallor HEMATOLOGIC/IMMUNOLOGIC: Absent: easy bleeding, easy bruising, lymphadenopathy, frequent infections ENDOCRINE: Absent: unexplained weight gain, unexplained weight loss, heat intolerance, cold intolerance NEUROLOGIC: Absent: headache, focal weakness or paresthesias, dizziness, unsteady gait, seizure, mental status changes, bladder or bowel incontinence PSYCHIATRIC: Absent: anxiety, depression, suicidal or homicidal ideation, hallucinations. PHYSICAL EXAMINATION Vital Signs - 24 hr 07/12/19 07/12/19 07/12/19 18:51 19:51 21:35 Temperature 98.5 F 99.9 F H 98.4 F Pulse Rate 113 H Pulse Rate [ Right Radial] Respiratory 18 Rate Blood Pressure 116/51 L Blood Pressure [Left Arm] O2 Sat by Pulse 98 Oximetry (%) 07/12/19 07/13/19 22:03 04:08 Temperature 98.2 F Pulse Rate Pulse Rate [ 98 H 102 H Right Radial] Respiratory 18 20 Rate Blood Pressure Blood Pressure 112/63 132/52 L [Left Arm] O2 Sat by Pulse 98 96 Oximetry (%) GENERAL: Awake, alert, and fully oriented, in no acute distress. HEAD: Normal with no signs of trauma. NECK: Normal range of motion, supple without lymphadenopathy, JVD, or masses. LUNGS: Breath sounds equal, clear to auscultation bilaterally. No wheezes, and no crackles. No accessory muscle use. HEART: Regular rate and rhythm, normal S1 and S2 without murmur, rub or gallop. ABDOMEN: Soft, normoactive bowel sounds. The abdomen in obese. There is tenderness to palpation all across the abdomen with the most tenderness being in the RUQ. No rebound. LOWER EXTREMITIES: 2+ pulses, warm, well-perfused. No calf tenderness. No peripheral edema. NEUROLOGICAL: Cranial nerves II-X intact. Normal speech. SKIN: Warm, dry, normal turgor, no rashes or lesions noted, normal capillary refill. Laboratory Results - last 24 hr 07/12/19 07/12/19 07/12/19 19:30 19:30 19:30 WBC 5.2 RBC 3.52 L Hgb 10.9 Hct 33.3 MCV 94.8 MCH 31.0 MCHC 32.7 RDW 14.7 Plt Count 207 MPV 7.6 Absolute Neuts (auto) 2.6 Neutrophils % 49.5 Lymphocytes % 35.2 Monocytes % 12.3 H Eosinophils % 1.8 Basophils % 1.2 Nucleated RBC % 0 PT with INR 11.70 INR 0.99 PTT (Actin FS) 26.1 VBG pH POC VBG pCO2 POC VBG pO2 VBG HCO3 VBG O2 Sat (Ena) VBG Base Excess Sodium Potassium Chloride Carbon Dioxide Anion Gap BUN Creatinine Est GFR (CKD-EPI)AfAm Est GFR (CKD-EPI)NonAf Random Glucose Lactic Acid Calcium Total Bilirubin AST ALT Alkaline Phosphatase Troponin I < 0.02 Total Protein Albumin Lipase 149 Urine Color Urine Appearance Urine pH Ur Specific [place] Urine Protein Urine Glucose (UA) Urine Ketones Urine Blood Urine Nitrite Urine Bilirubin Urine Urobilinogen Ur Leukocyte Esterase Urine WBC (Auto) Urine RBC (Auto) Urine Casts (Auto) U Epithel Cells (Auto) Urine Bacteria (Auto) Alcohol, Quantitative 07/12/19 07/12/19 07/12/19 19:30 19:30 19:30 WBC RBC Hgb Hct MCV MCH MCHC RDW Plt Count MPV Absolute Neuts (auto) Neutrophils % Lymphocytes % Monocytes % Eosinophils % Basophils % Nucleated RBC % PT with INR INR PTT (Actin FS) VBG pH 7.42 H POC VBG pCO2 36.1 L POC VBG pO2 118 H VBG HCO3 23.1 VBG O2 Sat (Ena) 98.5 H VBG Base Excess -0.5 Sodium 141 Potassium 4.2 Chloride 110 H Carbon Dioxide 23 Anion Gap 8 BUN 18.5 H Creatinine 1.5 H Est GFR (CKD-EPI)AfAm 43.74 Est GFR (CKD-EPI)NonAf 37.74 Random Glucose 146 H Lactic Acid 2.9 H* Calcium 8.7 Total Bilirubin 1.0 AST 81 H ALT 84 H Alkaline Phosphatase 96 Troponin I Total Protein 6.0 L Albumin 3.3 L Lipase Urine Color Urine Appearance Urine pH Ur Specific [place] Urine Protein Urine Glucose (UA) Urine Ketones Urine Blood Urine Nitrite Urine Bilirubin Urine Urobilinogen Ur Leukocyte Esterase Urine WBC (Auto) Urine RBC (Auto) Urine Casts (Auto) U Epithel Cells (Auto) Urine Bacteria (Auto) Alcohol, Quantitative < 3 07/12/19 07/12/19 07/13/19 22:45 22:51 02:34 WBC RBC Hgb Hct MCV MCH MCHC RDW Plt Count MPV Absolute Neuts (auto) Neutrophils % Lymphocytes % Monocytes % Eosinophils % Basophils % Nucleated RBC % PT with INR INR PTT (Actin FS) VBG pH POC VBG pCO2 POC VBG pO2 VBG HCO3 VBG O2 Sat (Ena) VBG Base Excess Sodium Potassium Chloride Carbon Dioxide Anion Gap BUN Creatinine Est GFR (CKD-EPI)AfAm Est GFR (CKD-EPI)NonAf Random Glucose Lactic Acid 4.0 H* 1.4 Calcium Total Bilirubin AST ALT Alkaline Phosphatase Troponin I Total Protein Albumin Lipase Urine Color Dk yellow Urine Appearance Cloudy Urine pH 6.0 Ur Specific [place] 1.037 H Urine Protein 1+ H Urine Glucose (UA) Negative Urine Ketones Trace H Urine Blood Negative Urine Nitrite Negative Urine Bilirubin 1+ H Urine Urobilinogen 1.0 Ur Leukocyte Esterase Negative Urine WBC (Auto) 6 Urine RBC (Auto) 1 Urine Casts (Auto) 30 U Epithel Cells (Auto) 10.4 Urine Bacteria (Auto) 406.1 Alcohol, Quantitative ASSESSMENT/PLAN: 59 yo f w/ pmh CAD, HTN, Asthma, HCV, who comes into the ED from [facility] ( ETOH detox) for worsening abdominal pain and fever. #abdominal pain, nausea and vomiting likely 2/2 etoh gastritis r/o SBO -afebrile in the ED -no leukocytosis -protonix 40 bid IV -Zofran 4mg IV prn nausea -morphine 2mg q4h pain -NS @ 75 -surgery to assess in the AM -check flu swab #ETOH dependence -librium protocol -po thiamine -po folate -utox #hematochezia -patient has not has ssx in 2 days. -Hb stable -will check FOBT -consider GI eval if FOBT positive #Lactic acidosis -peaked at 4. -now normalized after hydration -will rpt with 6am labs #FEN -NS @ 75 -lytes wnl -NPO #prophy -SCDs until FOBT back -protonix #dispo -admit med surg Visit type - Emergency Visit Emergency Visit: Yes ED Registration Date: 07/13/19 Care time: The patient presented to the Emergency Department on the above date and was hospitalized for further evaluation of their emergent condition. - New Patient This patient is new to me today: Yes Date on this admission: 07/13/19 - Critical Care Critical Care patient: No ATTENDING PHYSICIAN STATEMENT I saw and evaluated the patient. I reviewed the resident's note and discussed the case with the resident. I agree with the resident's findings and plan as documented. SUBJECTIVE: OBJECTIVE: ASSESSMENT AND PLAN:
[2019-07-13] MEDS: chlordiazePOXIDE HCL 25 MG CAPSULE PO SCH ×2 (05:58→11:07)
[2019-07-13] MEDS: LACTATED RINGERS SOLUTION 1,000 ML/1,000 ML INFUS.BAG IV SCH ×2 (06:36→15:58)
[2019-07-13 08:34] VITALS: BMI 41.3
[2019-07-13 09:34] LABS: COCAINE, UR NEGATIVE ng/ml (CUTOFF=300); METHADONE, UR NEGATIVE ng/ml (CUTOFF=300); PHENCYCLIDINE,URINE NEGATIVE ng/ml (CUTOFF=25); URINE AMPHETAMINES NEGATIVE ng/ml (CUTOFF=500); URINE BARBITURATES NEGATIVE ng/ml (CUTOFF=200)
[2019-07-13 09:52] LABS: OPIATES, URI POSITIVE ng/ml (CUTOFF=300); URINE BENZODIAZEPINES POSITIVE ng/ml (CUTOFF=200)
[2019-07-13 09:52] LABS: HEMATOCRIT 29.7 % (32.4-45.2); HEMOGLOBIN 9.8 GM/dL (10.7-15.3); MCH 31.9 pg (25.7-33.7); MCHC 33.1 g/dl (32.0-36.0); MEAN CELL VOLUME 96.2 fl (80-96); MEAN PLT VOLUME 7.7 fl (7.5-11.1); PLATELET COUNT 181 K/MM3 (134-434); RBC 3.09 M/mm3 (3.60-5.2); RDW 15.3 % (11.6-15.6); WHITE BLOOD COUNT 3.8 K/mm3 (4.0-10.0)
[2019-07-13] MEDS ORDERED: PANTOPRAZOLE SODIUM 40 MG VIAL IVPUSH SCH (10:00)
[2019-07-13] MEDS ORDERED: THIAMINE HCL 100 MG TABLET (FP) PO SCH (10:00)
[2019-07-13] MEDS ORDERED: FOLIC ACID 1 MG TABLET (FP) PO SCH (10:00)
[2019-07-13 10:04] LABS: URINE CRYSTALS RARE /hpf
[2019-07-13 10:17] LABS: BILIRUBIN,TOTAL 1.1 mg/dL (0.2-1); BLOOD UREA NITROGEN 13.9 mg/dL (7-18); CALCIUM 7.8 mg/dL (8.5-10.1); CREATININE 1.1 mg/dL (0.55-1.3); MAGNESIUM 2.3 mg/dL (1.8-2.4); TOT PROT 5.4 g/dl (6.4-8.2)
--- NOTE | 2019-07-13 10:50 | EKG ---
Test Reason : Blood Pressure : / mmHG Vent. Rate : 110 BPM Atrial Rate : 110 BPM P-R Int : 154 ms QRS Dur : 090 ms QT Int : 332 ms P-R-T Axes : 073 -07 057 degrees QTc Int : 449 ms SINUS TACHYCARDIA MINIMAL VOLTAGE CRITERIA FOR LVH, MAY BE NORMAL VARIANT NO PREVIOUS ECGS AVAILABLE Confirmed by ECHO DELEON MD ([id number]) on 07/13/2019 10:49:54 AM Referred By: Confirmed By:ECHO DELEON MD
[2019-07-13] MEDS: buPROPion HCL 75 MG TABLET PO SCH (11:06)
--- NOTE | 2019-07-13 12:48 | CONSULT ---
- Consultation REQUESTING PROVIDER: Josef STEINBERG CONSULT REQUEST: We have been asked to surgically evaluate this patient for ? abdominal pain ? PCP:Maco Rizzo MD HISTORY OF PRESENT ILLNESS:AMAURY who is a 59y/o female who was sent from detox with abdominal pain, nausea, vomting, and fever. She states that the pain, nausea, and vomiting have been present for several days. She feels that the pain worsens when using her abdominal muscles e.g when sitting up. She has not noticed any association with eating. She had a temperature of 101F at detox today. She took acetaminophen for the fever, but it did not resolve the pain. She has not had a a BM and states she is not passing flatus. PMHx: CAD?HTN/HLD/astham/HEP C/substance abuse (currently alcohol w/ 2 bottles of wine plus vodka daily, previously cocaine prior to 1994, IV heroin s/p successful taper of methadone 2017 PSHx: C-S x 3 Home Medications Medication Instructions Recorded Albuterol Sulfate Inhaler - 1 - 2 inh PO QID PRN 07/12/19 [Ventolin Hfa Inhaler -] Aspirin [ASA -] 81 mg PO DAILY 07/12/19 Atorvastatin Calcium 40 mg PO HS 07/12/19 Bupropion HCl [Wellbutrin -] 150 mg PO DAILY 07/12/19 Clonazepam [Klonopin] 1 mg PO TID PRN 07/12/19 Hydroxyzine HCl 50 mg PO DAILY PRN 07/12/19 Lamotrigine [Lamictal] 200 mg PO DAILY 07/12/19 Lisinopril [Prinivil -] 40 mg PO DAILY 07/12/19 Paroxetine HCl [Paxil] 20 mg PO DAILY 07/12/19 Allergies Allergy/AdvReac Type Severity Reaction Status Date / Time sertraline [From Zoloft] Allergy seizure Verified 07/12/19 18:58 REVIEW OF SYSTEMS: CONSTITUTIONAL: Absent: fever, chills, diaphoresis, generalized weakness, malaise, loss of appetite, weight change CARDIOVASCULAR: Absent: chest pain, syncope, palpitations, irregular heart rate, lightheadedness , peripheral edema RESPIRATORY: Absent: cough, shortness of breath, dyspnea with exertion, wheezing, stridor, hemoptysis GASTROINTESTINAL: Present: abdominal pain, abdominal distension, nausea, vomiting, constipation, Absent: melena, hematochezia GENITOURINARY: Absent: dysuria, frequency, urgency, hesitancy, hematuria, flank pain, genital pain MUSCULOSKELETAL: Absent: myalgia, arthralgia, joint swelling, back pain, neck pain SKIN: Absent: rash, itching, pallor HEMATOLOGIC/IMMUNOLOGIC: Absent: easy bleeding, easy bruising, lymphadenopathy NEUROLOGIC: Absent: headache, focal weakness, paresthesias, dizziness, unsteady gait, seizure, mental status changes, bladder or bowel incontinence PSYCHIATRIC: Present: anxiety, Absent: depression, suicidal or homicidal ideation, hallucinations. PHYSICAL EXAM: GENERAL: Awake, alert, and fully oriented, in no acute distress. HEAD: Normal with no signs of trauma. EYES: PERRL, sclera anicteric, conjunctiva clear. NECK: Normal ROM, supple without lymphadenopathy, JVD, or masses. ABDOMEN: Soft, nontender, not distended, minimal if any tympany, normoactive bowel sounds, no guarding, no rebound, no masses. No organomegaly. MUSCULOSKELETAL: Normal ROM at all joints. No bony deformities or tenderness. No CVA tenderness. UPPER EXTREMITIES: 2+ pulses, warm, well-perfused. No cyanosis. Cap refill <2 seconds. No peripheral edema. LOWER EXTREMITIES: 2+ pulses, warm, well-perfused. No calf tenderness. No peripheral edema. NEUROLOGICAL: Normal speech, gait not observed. PSYCH: Cooperative. Good eye contact. Appropriate mood and affect. SKIN: Warm, dry, normal turgor, no rashes or lesions noted. Vital Signs Temperature 98.4 F 07/13/19 06:00 Pulse Rate 100 H 07/13/19 09:55 Respiratory Rate 18 07/13/19 09:55 Blood Pressure 116/76 07/13/19 09:55 O2 Sat by Pulse Oximetry (%) 99 07/13/19 09:00 Lab Results WBC 3.8 K/mm3 (4.0-10.0) L 07/13/19 07:50 RBC 3.09 M/mm3 (3.60-5.2) L 07/13/19 07:50 Hgb 9.8 GM/dL (10.7-15.3) L 07/13/19 07:50 Hct 29.7 % (32.4-45.2) L 07/13/19 07:50 MCV 96.2 fl (80-96) H 07/13/19 07:50 MCHC 33.1 g/dl (32.0-36.0) 07/13/19 07:50 RDW 15.3 % (11.6-15.6) 07/13/19 07:50 Plt Count 181 K/MM3 (134-434) 07/13/19 07:50 Sodium 144 mmol/L (136-145) 07/13/19 07:50 Potassium 4.0 mmol/L (3.5-5.1) 07/13/19 07:50 Chloride 114 mmol/L (98-107) H 07/13/19 07:50 Carbon Dioxide 24 mmol/L (21-32) 07/13/19 07:50 Anion Gap 6 MMOL/L (8-16) L 07/13/19 07:50 BUN 13.9 mg/dL (7-18) 07/13/19 07:50 Creatinine 1.1 mg/dL (0.55-1.3) 07/13/19 07:50 Random Glucose 106 mg/dL (74-106) 07/13/19 07:50 Calcium 7.8 mg/dL (8.5-10.1) L 07/13/19 07:50 INR 0.99 (0.83-1.09) 07/12/19 19:30 CT scan a/p reviewed IMP:??PSBO ??;there is air and stool in the colon making even partial obstruction unlikely PLAN: Suggest NPO/IVF/NGT if vomits; serial abdominal x rays; will follow up. No evidence of an acute surgical abdomen; pain seems musculoskeletal in nature as it is worse w/movement. Jose Suresh MD FACS
[2019-07-13] MEDS ORDERED: FOLIC ACID 5 MG/1 ML SQ ONE (12:54)
[2019-07-13] MEDS ORDERED: LORazepam 2 MG/ML SDV VIAL IVPUSH PRN (13:09)
[2019-07-13] MEDS ORDERED: hydrOXYzine PAMOATE 50 MG CAPSULE (FP) PO PRN (13:22)
[2019-07-13] MEDS ORDERED: diazePAM CARPU-JECT 10 MG/2 ML DISP.SYRIN IVPUSH ONE ×2 (14:45→22:00)
[2019-07-13] MEDS: PARoxetine HCL 20 MG TABLET PO SCH (15:52)
[2019-07-13] MEDS: ASPIRIN 81 MG CHEWABLE TABLETS PO SCH (15:52)
[2019-07-13] MEDS: ACETAMINOPHEN 1000 MG/100 ML VIAL (NON FORMULARY) IVPB PRN (17:29)
[2019-07-13] MEDS ORDERED: ATORVASTATIN CA 40 MG TABLET (FP) PO SCH (22:00)
[2019-07-14] MEDS: LACTATED RINGERS SOLUTION 1,000 ML/1,000 ML INFUS.BAG IV SCH ×2 (00:07→06:30)
[2019-07-14] MEDS: ACETAMINOPHEN 1000 MG/100 ML VIAL (NON FORMULARY) IVPB PRN (01:24)
[2019-07-14] MEDS ORDERED: chlordiazePOXIDE HCL 25 MG CAPSULE PO SCH (05:00)
[2019-07-14 08:30] LABS: BASO % 2.4 % (0-2.0); EOS % 5.1 % (0-4.5); HEMATOCRIT 29.3 % (32.4-45.2); HEMOGLOBIN 9.6 GM/dL (10.7-15.3); LYMPH % 25.7 % (8-40); MCH 31.6 pg (25.7-33.7); MCHC 32.7 g/dl (32.0-36.0); MEAN CELL VOLUME 96.8 fl (80-96); MEAN PLT VOLUME 7.5 fl (7.5-11.1); MONO % 13.2 % (3.8-10.2); NEUT % 53.6 % (42.8-82.8); PLATELET COUNT 177 K/MM3 (134-434); RBC 3.03 M/mm3 (3.60-5.2); WHITE BLOOD COUNT 2.6 K/mm3 (4.0-10.0)
[2019-07-14 08:58] LABS: ALBUMIN 2.8 g/dl (3.4-5.0); BILIRUBIN,TOTAL 0.9 mg/dL (0.2-1); CALCIUM 8.4 mg/dL (8.5-10.1); CREATININE 0.9 mg/dL (0.55-1.3); MAGNESIUM 2.1 mg/dL (1.8-2.4); POTASSIUM 4.5 mmol/L (3.5-5.1); TOT PROT 5.1 g/dl (6.4-8.2)
[2019-07-14] MEDS: PARoxetine HCL 20 MG TABLET PO SCH (09:27)
[2019-07-14] MEDS: ASPIRIN 81 MG CHEWABLE TABLETS PO SCH (09:28)
[2019-07-14] MEDS ORDERED: BISACODYL 10 MG SUPP.RECT RC ONE (09:45)
[2019-07-14] MEDS ORDERED: THIAMINE HCL 200 MG/2 ML VIAL IVPB SCH (10:00)
[2019-07-14] MEDS ORDERED: diazePAM 5 MG TABLET PO SCH (10:00)
[2019-07-14] MEDS ORDERED: lamoTRIgine 100 MG TABLET PO SCH (10:00)
[2019-07-14] MEDS ORDERED: PANTOPRAZOLE SODIUM 40 MG VIAL IVPUSH SCH (10:00)
[2019-07-14] MEDS ORDERED: THIAMINE HCL 100 MG TABLET (FP) PO SCH (10:00)
[2019-07-14] MEDS ORDERED: FOLIC ACID 1 MG TABLET (FP) PO SCH (10:00)
--- NOTE | 2019-07-14 10:45 | PN ---
Teaching Attending Note Name of Resident: Niranjan Hummel ATTENDING PHYSICIAN STATEMENT I saw and evaluated the patient. I reviewed the resident's note and discussed the case with the resident. I agree with the resident's findings and plan as documented. Negative FOBT, cleared by sgy, no active withdrawals VS labs imaging reviewed; as per DCS Agree with hospital course NAD AAO Resting in bed NT ND +BS CN2-12 wnl, no fnd Normal mood, appropriate affect, restricted insight Agree with hospital course and followups as per resident documenteation.
[2019-07-14] MEDS ORDERED: LACTULOSE 20 GM/30 ML UDC (FOR ORAL USE ONLY) PO ONE (10:46)
--- NOTE | 2019-07-14 11:11 | DS ---
Physical Exam: SUBJECTIVE: Patient seen and examined. Pt asymptomatic and afebrile. No overnight events. Not currently withdrawing. Denies f/c/v/d/chest pain or abdominal pain. OBJECTIVE: Vital Signs Period Temp Pulse Resp BP Sys/Mora Pulse Ox Last 24 Hr 98.4 F-98.7 F 93-100 18-20 106-136/63-80 97-99 PHYSICAL EXAM GENERAL: AOx3, NAD HEAD: Normal with no signs of trauma. NECK: Normal range of motion, supple without lymphadenopathy, JVD, or masses. LUNGS: CTAB, no wheezing or crackles HEART: RRR, normal S1 and S2 without murmur, rub or gallop. ABDOMEN: Soft, normoactive bowel sounds. The abdomen in obese. There is tenderness to palpation all across the abdomen with the most tenderness being in the RUQ- which has improved since admission. No rebound. LOWER EXTREMITIES: 2+ pulses, warm, well-perfused. No calf tenderness. No peripheral edema. NEUROLOGICAL: Cranial nerves II-X intact. Normal speech. SKIN: Warm, dry, normal turgor, no rashes or lesions noted, normal capillary refill. LABS Laboratory Results - last 24 hr 07/14/19 07/14/19 07:45 07:45 WBC 2.6 L RBC 3.03 L Hgb 9.6 L Hct 29.3 L MCV 96.8 H MCH 31.6 MCHC 32.7 RDW 16.0 H Plt Count 177 MPV 7.5 Absolute Neuts (auto) 1.4 L Neutrophils % 53.6 Lymphocytes % 25.7 D Monocytes % 13.2 H Eosinophils % 5.1 H D Basophils % 2.4 H Nucleated RBC % 0 Sodium 147 H Potassium 4.5 Chloride 116 H Carbon Dioxide 27 Anion Gap 4 L BUN 6.0 L Creatinine 0.9 Est GFR (CKD-EPI)AfAm 81.11 Est GFR (CKD-EPI)NonAf 69.99 Random Glucose 94 Calcium 8.4 L Magnesium 2.1 Total Bilirubin 0.9 AST 122 H ALT 94 H Alkaline Phosphatase 69 Total Protein 5.1 L Albumin 2.8 L HOSPITAL COURSE: Date of Admission:07/13/19 59 y/o F w/ PMH CAD, HTN, Asthma, HCV, presents to the ED from [facility] for abdominal pain, vomiting, nausea 2/2 to Etoh gastritis admitted for SOB r/ o. Pt is an avid drinker, drank up to alcohol w/ 2 bottles of wine plus vodka daily, previous cocaine user prior to 1994, IV heroin s/p successful taper of methadone 2017. Pt also reported she had blood in her stool but her SOBT was negative. Pt was found to be positive for opiates, MDMA and BZD. Pt was found also to be acidotic and was started on IVF and surgery was consulted. CT a/p showed low grade partial SBO. Abd- xray also showed no acute pathology, US abd was negative as well, CBD was .6-.7 cm and CXR was negative for acute findings. Surgery was consulted, Dr. Suresh recom NPO/IVF/NGT if vomits; serial abdominal x rays, which showed no acute pathology. No evidence of an acute surgical abdomen; pain seems musculoskeletal in nature as it is worse w/movement. Pt was stabilized and discharged back to [facility]. Pt was prescribed folic acid, Protonix and thiamine. CT a/p showed low grade partial SBO. Abd- xray also showed no acute pathology US abd was negative as well, CBD was .6-.7 cm CXR was negative for acute findings. Date of Discharge: 07/14/19 Minutes to complete discharge: 40 Discharge Summary Problems reviewed: Yes Reason For Visit: PAIN OF UPPER ABDOMEN, INTRACTABLE ABD PAIN, SEPSI Current Active Problems Upper abdominal pain (Chronic) Condition: Improved - Instructions Diet, Activity, Other Instructions: You were admitted to the hospital for abdominal pain. While you were here we did imaging and did not find any abnormalities. Your abdominal pain is likely due to your alcohol use. It is very important that you stop using alcohol. To treat your abdominal pain please take: Protonix 40 by mouth daily for one month Thiamine 100 mg by mouth once a day folic acid 1 pill by mouth once a day While you were here you had a high number of eosinophilias in your blood, this needs to be followed by your primary care doctor and with further blood work. Please have repeat blood work done ( CBC) in one week. You are being discharged to [facility] so that you can finish your detox. Please continue all your home meds as prescribed. You should try to wean yourself off the Klonipin. Please discuss this with your primary care physician. Follow up with your primary care physician within one week, if you do not have one you can follow up with our clinic. Return to the Emergency Department if you have any nausea, vomiting, chest pain , or shortness of breath, or change of symptoms. Referrals: [facility] [place] [facility] [place] [Provider Group] Disposition: I.P. ALCOHOL/SUBS ABUSE REHAB - Home Medications Comprehensive Discharge Medication List: Ambulatory Orders Albuterol Sulfate Inhaler - [Ventolin HFA Inhaler -] 1 - 2 inh PO QID PRN Aspirin [ASA -] 81 mg PO DAILY 07/12/19 Atorvastatin Calcium 40 mg PO HS 07/12/19 Bupropion HCl [Wellbutrin -] 150 mg PO DAILY 07/12/19 Clonazepam [Klonopin] 1 mg PO TID PRN 07/12/19 Hydroxyzine HCl 50 mg PO DAILY PRN 07/12/19 Lamotrigine [Lamictal] 200 mg PO DAILY 07/12/19 Lisinopril [Prinivil -] 40 mg PO DAILY 07/12/19 Paroxetine HCl [Paxil] 20 mg PO DAILY 07/12/19 Folic Acid - 1 mg PO DAILY #30 tablet 07/14/19 Miscellaneous Medical Supply [Outpatient Order] 1 each ASDIR #1 misc Pantoprazole Sodium [Protonix IV] 40 mg IVPUSH DAILY #30 vial 07/14/19 Thiamine HCl [Vitamin B1 -] 100 mg PO DAILY #30 tablet 07/14/19 This patient is new to me today: Yes Date on this admission: 07/14/19 Emergency Visit: Yes ED Registration Date: 07/13/19 Care time: The patient presented to the Emergency Department on the above date and was hospitalized for further evaluation of their emergent condition. Critical Care patient: No - Discharge Referral Referred to [facility] No ATTENDING PHYSICIAN STATEMENT I saw and evaluated the patient. I reviewed the resident's note and discussed the case with the resident. I agree with the resident's findings and plan as documented. SUBJECTIVE: OBJECTIVE: ASSESSMENT AND PLAN:
[2019-07-14] MEDS ORDERED: ONDANSETRON 4 MG/2 ML VIAL IM ONE (14:48)
[2019-07-14] MEDS ORDERED: ONDANSETRON 4 MG/2 ML VIAL IVPUSH ONE (14:48)
[2019-07-14] MEDS ORDERED: ONDANSETRON *ODT* 4 MG TABLET SL ONE (15:12)
[2019-07-14 15:46] VITALS: PULSE 100
[2019-07-14 15:56] VITALS: BP 122/70; TEMP 97.8
[2019-07-15] MEDS ORDERED: chlordiazePOXIDE HCL 10 MG CAPSULE PO PRN
[2019-07-15] MEDS ORDERED: chlordiazePOXIDE HCL 10 MG CAPSULE PO SCH (05:00)
[2019-07-16] MEDS ORDERED: chlordiazePOXIDE HCL 10 MG CAPSULE PO SCH (05:00)
== END 2019-07-14 16:04 | disposition other institution (70) | DRG 392 ==
LOC: JER 18:35 → JERBED 07-13 01:14 → J5S 07-13 04:01
PROVIDERS: ADMIT Internal Medicine; ATTEND Internal Medicine
DX: K29.20 Alcoholic gastritis without bleeding (principal); E87.2 Acidosis; K92.1 Melena; R10.10 Upper abdominal pain, unspecified; I25.10 Atherosclerotic heart disease of native coronary artery without angina pectoris; I25.2 Old myocardial infarction; I10 Essential (primary) hypertension; E78.5 Hyperlipidemia, unspecified; J45.909 Unspecified asthma, uncomplicated; B19.20 Unspecified viral hepatitis C without hepatic coma; F32.9 Major depressive disorder, single episode, unspecified; F41.9 Anxiety disorder, unspecified; F17.210 Nicotine dependence, cigarettes, uncomplicated; R00.0 Tachycardia, unspecified; F10.20 Alcohol dependence, uncomplicated
CPT/HCPCS: 36415; 71045-TC-FY; 74019-TC-FY; 74177-TC; 76705-TC; 80053; 80307; 81003; 82272; 82803; 83605; 83690; 83735; 84484; 85025; 85027; 85610; 85730; 87040; 87804; 93005; 93010; 99285-25; G0480; J0131; J7030; Q0162

== ENCOUNTER 2019-07-14 16:38 | Inpatient (IN) | payer OTHER ==
[2019-07-14 17:50] VITALS: BMI 40.2
[2019-07-14] MEDS ORDERED: DICYCLOMINE HCL 10 MG CAPSULE PO PRN (18:37)
[2019-07-14] MEDS ORDERED: MENTHOL/PHENOL 1 EACH UD MM PRN (18:37)
[2019-07-14] MEDS ORDERED: MAGNESIUM CITRATE 300 ML BOTTLE PO PRN (18:37)
[2019-07-14] MEDS ORDERED: MELATONIN 5 MG TABLETS PO PRN (18:37)
[2019-07-14] MEDS ORDERED: BISMUTH SUBSALICYLATE 524 MG/30 ML UD PO PRN (18:37)
[2019-07-14] MEDS ORDERED: IBUPROFEN 400 MG TABLET (FP) PO PRN (18:37)
[2019-07-14] MEDS ORDERED: chlordiazePOXIDE HCL 10 MG CAPSULE PO PRN (18:37)
[2019-07-14] MEDS ORDERED: MAG HYDROX/AL HYDROX/SIMETH 30 ML UNIT-DOSE CUP PO PRN (18:37)
[2019-07-14] MEDS ORDERED: ONDANSETRON *ODT* 4 MG TABLET SL PRN (18:37)
[2019-07-14] MEDS ORDERED: P-EPHED 60MG/TRIPROLIDI 2.5MG TABLET PO PRN (18:37)
[2019-07-14] MEDS ORDERED: NICOTINE POLACRILEX 2 MG GUM BUC PRN (18:37)
[2019-07-14] MEDS ORDERED: guaiFENesin 200 MG/10 ML 10 ML UNIT-DOSE CUPS PO PRN (18:37)
[2019-07-14] MEDS ORDERED: hydrOXYzine PAMOATE 25 MG CAPSULE (FP) PO PRN (18:37)
[2019-07-14] MEDS ORDERED: MAGNESIUM HYDROX 2400MG/30ML ORAL SUSPENSION 30 ML CUP PO PRN (18:37)
[2019-07-14] MEDS ORDERED: ACETAMINOPHEN 325 MG TABLET (FP) PO PRN ×2 (18:37)
--- NOTE | 2019-07-14 19:01 | PN ---
[facility] Progress Note Note: HOSPITAL RETURN FROM [facility] AFTER BEING TREATED FOR ABD PAIN,N/V. DX- ALCOHOL INDUCED GASTRITIS P- READMIT TO DETOX CONT LIBRIUM TAPER PROTONIX 40 MG DAILY HOSPITAL COURSE: Date of Admission:07/13/19 59 y/o F w/ PMH CAD, HTN, Asthma, HCV, [facility], vomiting, nausea 2/2 to Etoh gastritis admitted for SOB r/ o. Pt is an avid drinker, drank up to alcohol w/ 2 bottles of wine plus vodka daily, previous cocaine user prior to 1994, IV heroin s/p successful taper of methadone 2017. Pt also reported she had blood in her stool but her SOBT was negative. Pt was found to be positive for opiates, MDMA and BZD. Pt was found also to be acidotic and was started on IVF and surgery was consulted. CT a/p showed low grade partial SBO. Abd- xray also showed no acute pathology, US abd was negative as well, CBD was .6-.7 cm and CXR was negative for acute findings. Surgery was consulted, Dr. Suresh recom NPO/IVF/NGT if vomits; serial abdominal x rays, which showed no acute pathology. No evidence of an acute surgical abdomen; pain seems musculoskeletal in nature as it is worse w/movement. Pt was stabilized [facility] Pt was prescribed folic acid, Protonix and thiamine. CT a/p showed low grade partial SBO. Abd- xray also showed no acute pathology US abd was negative as well, CBD was .6-.7 cm CXR was negative for acute findings. Date of Discharge: 07/14/19 Minutes to complete discharge: 40 Discharge Summary Problems reviewed: Yes Reason For Visit: PAIN OF UPPER ABDOMEN, INTRACTABLE ABD PAIN, SEPSI Current Active Problems Upper abdominal pain (Chronic) Condition: Improved - Instructions Diet, Activity, Other Instructions: You were admitted to the hospital for abdominal pain. While you were here we did imaging and did not find any abnormalities. Your abdominal pain is likely due to your alcohol use. It is very important that you stop using alcohol. To treat your abdominal pain please take: Protonix 40 by mouth daily for one month Thiamine 100 mg by mouth once a day folic acid 1 pill by mouth once a day While you were here you had a high number of eosinophilias in your blood, this needs to be followed by your primary care doctor and with further blood work. Please have repeat blood work done ( CBC) in one week. [facility] your [facility]. Please continue all your home meds as prescribed. You should try to wean yourself off the Klonipin. Please discuss this with your primary care physician. Follow up with your primary care physician within one week, if you do not have one you can follow up with our clinic. Return to the Emergency Department if you have any nausea, vomiting, chest pain , or shortness of breath, or change of symptoms. Referrals: [facility] [place] [Provider Group] Disposition: I.P. ALCOHOL/SUBS ABUSE REHAB - Home Medications Comprehensive Discharge Medication List: Ambulatory Orders Albuterol Sulfate Inhaler - [Ventolin HFA Inhaler -] 1 - 2 inh PO QID PRN Aspirin [ASA -] 81 mg PO DAILY 07/12/19 Atorvastatin Calcium 40 mg PO HS 07/12/19 Bupropion HCl [Wellbutrin -] 150 mg PO DAILY 07/12/19 Clonazepam [Klonopin] 1 mg PO TID PRN 07/12/19 Hydroxyzine HCl 50 mg PO DAILY PRN 07/12/19 Lamotrigine [Lamictal] 200 mg PO DAILY 07/12/19 Lisinopril [Prinivil -] 40 mg PO DAILY 07/12/19 Paroxetine HCl [Paxil] 20 mg PO DAILY 07/12/19 Folic Acid - 1 mg PO DAILY #30 tablet 07/14/19 Miscellaneous Medical Supply [Outpatient Order] 1 each ASDIR #1 misc Pantoprazole Sodium [Protonix IV] 40 mg IVPUSH DAILY #30 vial 07/14/19 Thiamine HCl [Vitamin B1 -] 100 mg PO DAILY #30 tablet 07/14/19 This patient is new to me today: Yes Date on this admission: 07/14/19 Emergency Visit: Yes ED Registration Date: 07/13/19 Care time: The patient presented to the Emergency Department on the above date and was hospitalized for further evaluation of their emergent condition. Critical Care patient: No - Discharge Referral Referred to [facility] Med [facility].C[facility] No ATTENDING PHYSICIAN STATEMENT I saw and evaluated the patient. I reviewed the resident's note and discussed the case with the resident. I agree with the resident's findings and plan as documented. SUBJECTIVE: OBJECTIVE: ASSESSMENT AND PLAN:
[2019-07-14] MEDS ORDERED: chlordiazePOXIDE HCL 25 MG CAPSULE PO SCH (21:00)
[2019-07-14] MEDS: THIAMINE HCL 100 MG TABLET (FP) PO SCH (21:12)
[2019-07-14] MEDS: ATORVASTATIN CA 40 MG TABLET (FP) PO SCH (21:12)
[2019-07-14] MEDS: ALBUTEROL SO4 8 GM HFA INHALER IH PRN (23:42)
[2019-07-15] MEDS: chlordiazePOXIDE 5 MG CAPSULE PO SCH ×3 (05:48→21:26)
[2019-07-15] MEDS: ALBUTEROL SO4 8 GM HFA INHALER IH PRN ×2 (05:51→21:31)
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
[2019-07-15] MEDS: ASPIRIN 81 MG CHEWABLE TABLETS PO SCH (10:23)
[2019-07-15] MEDS: LISINOPRIL 20 MG TABLET (FP) PO SCH (10:23)
[2019-07-15] MEDS: PRENATAL VITAMINS W/ FOLIC ACID TABLET (FP) PO SCH (10:24)
[2019-07-15] MEDS: PANTOPRAZOLE 40 MG TABLET PO SCH (10:24)
[2019-07-15] MEDS: METHOCARBAMOL 500 MG TABLET PO PRN ×2 (10:26→17:38)
[2019-07-15] MEDS: PARoxetine HCL 20 MG TABLET PO SCH (10:55)
[2019-07-15] MEDS: lamoTRIgine 100 MG TABLET PO SCH (10:58)
[2019-07-15] MEDS ORDERED: ONDANSETRON *ODT* 4 MG TABLET SL ONE (14:48)
[2019-07-15] MEDS ORDERED: DICYCLOMINE HCL 10 MG CAPSULE PO ONE (14:48)
[2019-07-15] MEDS ORDERED: AZITHROMYCIN 250 MG TABLET PO ONE (15:23)
--- NOTE | 2019-07-15 15:24 | PN ---
S CIWA - CIWA Score Nausea/Vomitin-Mild Nausea/No Vomiting Muscle Tremors: 3 Anxiety: 4-Mod. Anxious/Guarded Agitation: 1-Slight > Activity Paroxysmal Sweats: 2 Orientation: 0-Oriented Tacttile Disturbances: 0-None Auditory Disturbances: 0-None Visual Disturbances: 1-Very Mild Sensitivity Headache: 0-None Present CIWA-Ar Total Score: 12 [facility] Progress Note (SOAP) Subjective: 59 years old female admitted on 07/12/19 for alcohol withdrawal sx management treating with librium detox regiment transferred to ER for chronic abdominal pain at ER returned on 07/14/19 for alcohol withdrawal continue librium regiment long history of hypertension with bp elevation addition amlodipine 10 mg po daily and clonidiine 0.1 mg po q6h prn Objective: 07/15/19 15:34 Vital Signs Temperature 99.0 F 07/15/19 13:22 Pulse Rate 106 H 07/15/19 13:22 Respiratory Rate 20 07/15/19 13:22 Blood Pressure 151/91 07/15/19 13:22 O2 Sat by Pulse Oximetry (%) 07/15/19 15:35 lab see 07/12/19 ER lab anemia ferrous sulfate 325mg po Assessment: 07/15/19 15:36 alcohol withdrawal Plan: librium regimen
[2019-07-15] MEDS ORDERED: SUCRALFATE 1 GM TABLET (FP) PO ONE (15:31)
[2019-07-15] MEDS: FERROUS SO4 325 MG TABLET (FP) PO SCH (15:45)
[2019-07-15] MEDS: cloNIDine HCL 0.1 MG TABLET PO PRN (17:37)
[2019-07-15] MEDS: hydrOXYzine PAMOATE 50 MG CAPSULE (FP) PO PRN ×2 (17:39→21:30)
[2019-07-15] MEDS: amLODIPine BESYLATE 10 MG TABLET (FP) PO SCH (21:26)
[2019-07-15] MEDS: THIAMINE HCL 100 MG TABLET (FP) PO SCH (21:26)
[2019-07-15] MEDS: ATORVASTATIN CA 40 MG TABLET (FP) PO SCH (21:26)
[2019-07-16] MEDS: METHOCARBAMOL 500 MG TABLET PO PRN ×3 (01:38→18:06)
[2019-07-16] MEDS: hydrOXYzine PAMOATE 50 MG CAPSULE (FP) PO PRN ×2 (01:39→22:27)
[2019-07-16] MEDS: ALBUTEROL SO4 8 GM HFA INHALER IH PRN (03:49)
[2019-07-16] MEDS: chlordiazePOXIDE HCL 10 MG CAPSULE PO SCH ×2 (06:02→17:31)
[2019-07-16] MEDS: PANTOPRAZOLE 40 MG TABLET PO SCH (10:11)
[2019-07-16] MEDS: ASPIRIN 81 MG CHEWABLE TABLETS PO SCH (10:11)
[2019-07-16] MEDS: amLODIPine BESYLATE 10 MG TABLET (FP) PO SCH (10:11)
[2019-07-16] MEDS: PRENATAL VITAMINS W/ FOLIC ACID TABLET (FP) PO SCH (10:11)
[2019-07-16] MEDS: LISINOPRIL 20 MG TABLET (FP) PO SCH (10:12)
[2019-07-16] MEDS: lamoTRIgine 100 MG TABLET PO SCH (10:12)
[2019-07-16] MEDS: FERROUS SO4 325 MG TABLET (FP) PO SCH (10:12)
[2019-07-16] MEDS: PARoxetine HCL 20 MG TABLET PO SCH (10:12)
[2019-07-16] MEDS: AZITHROMYCIN 250 MG TABLET PO SCH (10:13)
--- NOTE | 2019-07-16 13:12 | DS ---
[facility] Detox Discharge Summary Admission Date: 07/14/19 Discharge Date: 07/16/19 - History Present History: Alcohol Dependence - Physical Exam Results Vital Signs: Vital Signs Temperature 98.9 F 07/16/19 09:12 Pulse Rate 94 H 07/16/19 09:12 Respiratory Rate 18 07/16/19 09:12 Blood Pressure 118/80 07/16/19 09:12 O2 Sat by Pulse Oximetry (%) - Treatment Hospital Course: Detox Protocol Followed, Detoxed Safely, Responded well, Discharged Condition Good, Rehab Referral Accepted - Medication Discharge Medications: Ambulatory Orders Albuterol Sulfate Inhaler - [Ventolin HFA Inhaler -] 1 - 2 inh PO QID PRN Aspirin [ASA -] 81 mg PO DAILY 07/12/19 Atorvastatin Calcium 40 mg PO HS 07/12/19 Bupropion HCl [Wellbutrin -] 150 mg PO DAILY 07/12/19 Clonazepam [Klonopin] 1 mg PO TID PRN 07/12/19 Hydroxyzine HCl 50 mg PO DAILY PRN 07/12/19 Lamotrigine [Lamictal] 200 mg PO DAILY 07/12/19 Lisinopril [Prinivil -] 40 mg PO DAILY 07/12/19 Paroxetine HCl [Paxil] 20 mg PO DAILY 07/12/19 Folic Acid - 1 mg PO DAILY #30 tablet 07/14/19 Miscellaneous Medical Supply [Outpatient Order] 1 each ASDIR #1 misc Pantoprazole Sodium [Protonix IV] 40 mg IVPUSH DAILY #30 vial 07/14/19 Thiamine HCl [Vitamin B1 -] 100 mg PO DAILY #30 tablet 07/14/19 - AMA Did Patient Leave Against Medical Advice: No CIWA Score - CIWA Score Nausea/Vomitin-No Nausea/No Vomiting Muscle Tremors: 2 Anxiety: 3 Agitation: 0-Normal Activity Paroxysmal Sweats: 1-Minimal Palms Moist Orientation: 0-Oriented Tacttile Disturbances: 0-None Auditory Disturbances: 0-None Visual Disturbances: 0-None Headache: 0-None Present CIWA-Ar Total Score: 6
--- NOTE | 2019-07-16 13:17 | PN ---
S CIWA - CIWA Score Nausea/Vomitin-No Nausea/No Vomiting Muscle Tremors: 2 Anxiety: 2 Agitation: 2 Paroxysmal Sweats: No Perspiration Orientation: 0-Oriented Tacttile Disturbances: 0-None Auditory Disturbances: 0-None Visual Disturbances: 0-None Headache: 1-Very Mild CIWA-Ar Total Score: 7 [facility] Progress Note (SOAP) Subjective: 59 years old femalea dmitted on 07/12/19 for alcohol withdrawal sx management treating with librium detox regiment feeling better today determines to maintain sober by attending AA meetings in the community reports ast elevation when drinking alcohol "will go down" patient prefers return to work after detox and follow up with primary care provider Objective: 07/16/19 13:30 Vital Signs Temperature 98.3 F 07/16/19 12:30 Pulse Rate 94 H 07/16/19 12:30 Respiratory Rate 18 07/16/19 12:30 Blood Pressure 105/67 07/16/19 12:30 O2 Sat by Pulse Oximetry (%) lab see 07/14/19 Assessment: 07/16/19 13:31 alcohol withdrawal Plan: librium regimen
[2019-07-16] MEDS ORDERED: ACETAMINOPHEN 325 MG TABLET (FP) PO ONE (13:59)
[2019-07-16] MEDS: cloNIDine HCL 0.1 MG TABLET PO PRN (22:27)
[2019-07-16] MEDS: ATORVASTATIN CA 40 MG TABLET (FP) PO SCH (22:27)
[2019-07-16] MEDS: THIAMINE HCL 100 MG TABLET (FP) PO SCH (22:28)
[2019-07-17] MEDS ORDERED: chlordiazePOXIDE HCL 10 MG CAPSULE PO PRN
[2019-07-17] MEDS ORDERED: chlordiazePOXIDE HCL 10 MG CAPSULE PO ONE (05:00)
[2019-07-17] MEDS: ALBUTEROL SO4 8 GM HFA INHALER IH PRN (08:11)
[2019-07-17 09:24] VITALS: BP 137/80; PULSE 107; TEMP 97.4
[2019-07-17] MEDS: LISINOPRIL 20 MG TABLET (FP) PO SCH (09:24)
[2019-07-17] MEDS: ASPIRIN 81 MG CHEWABLE TABLETS PO SCH (09:24)
[2019-07-17] MEDS: PANTOPRAZOLE 40 MG TABLET PO SCH (09:24)
[2019-07-17] MEDS: lamoTRIgine 100 MG TABLET PO SCH (09:24)
[2019-07-17] MEDS: AZITHROMYCIN 250 MG TABLET PO SCH (09:25)
[2019-07-17] MEDS: PARoxetine HCL 20 MG TABLET PO SCH (09:26)
[2019-07-17] MEDS: amLODIPine BESYLATE 10 MG TABLET (FP) PO SCH (09:26)
[2019-07-17] MEDS: PRENATAL VITAMINS W/ FOLIC ACID TABLET (FP) PO SCH (09:26)
[2019-07-17] MEDS: FERROUS SO4 325 MG TABLET (FP) PO SCH (09:27)
--- NOTE | 2019-07-17 11:11 | DS ---
[facility] Detox Discharge Summary Admission Date: 07/14/19 Discharge Date: 07/17/19 - History Present History: Alcohol Dependence Additional Comments: 59 years old admitted on 07/12/19 for alcohol withdrawal sx management treated with librium detox regiments patient has completed the librium regiment and tolerated well alert oriented x 3 seen by psychiatrist resume paxil lamictal and wellbutrin respiratory clear lungs bilaterally skin warm and dry patient continues experience mild abdominal discomfort that the patient was sent to ER treated with gastritis return with protonix no vomiting through out the detox stay abdomen soft round tenderness on epigastric area no rebound tenderness [facility] - Physical Exam Results Vital Signs: Vital Signs Temperature 97.4 F L 07/17/19 08:09 Pulse Rate 107 H 07/17/19 08:09 Respiratory Rate 20 07/17/19 08:09 Blood Pressure 137/80 07/17/19 08:09 O2 Sat by Pulse Oximetry (%) Pertinent Admission Physical Exam Findings: alcohol withdrawal lab see ER results that the patient agrees to binging in lab to [facility] for follow up - Treatment Hospital Course: Detox Protocol Followed, Detoxed Safely, Responded well, Discharged Condition Good, Rehab Referral Accepted Patient has Accepted a Rehab Referral to: [facility] - Medication Discharge Medications: Ambulatory Orders Aspirin [ASA -] 81 mg PO DAILY 07/12/19 Atorvastatin Calcium 40 mg PO HS 07/12/19 Bupropion HCl [Wellbutrin -] 150 mg PO DAILY 07/12/19 Clonazepam [Klonopin] 1 mg PO TID PRN 07/12/19 Hydroxyzine HCl 50 mg PO DAILY PRN 07/12/19 Lamotrigine [Lamictal] 200 mg PO DAILY 07/12/19 Lisinopril [Prinivil -] 40 mg PO DAILY 07/12/19 Paroxetine HCl [Paxil] 20 mg PO DAILY 07/12/19 Folic Acid - 1 mg PO DAILY #30 tablet 07/14/19 Miscellaneous Medical Supply [Outpatient Order] 1 each ASDIR #1 misc Pantoprazole Sodium [Protonix IV] 40 mg IVPUSH DAILY #30 vial 07/14/19 Thiamine HCl [Vitamin B1 -] 100 mg PO DAILY #30 tablet 07/14/19 Albuterol Sulfate Inhaler - [Ventolin HFA Inhaler -] 2 inh PO Q4H PRN #1 inhaler 07/16/19 Amlodipine Besylate [Norvasc -] 10 mg PO DAILY #14 tablet 07/16/19 - Diagnosis (1) Alcohol dependence, uncomplicated Status: Acute (2) Asthma Status: Chronic Qualifiers: Asthma severity: mild Asthma persistence: intermittent Asthma complication type: with status asthmaticus Qualified Code(s): J45.22 - Mild intermittent asthma with status asthmaticus (3) HLD (hyperlipidemia) Status: Chronic Qualifiers: Hyperlipidemia type: pure hypertriglyceridemia Qualified Code(s): E78.1 - Pure hyperglyceridemia (4) HTN (hypertension) Status: Chronic Qualifiers: Hypertension type: essential hypertension Qualified Code(s): I10 - Essential (primary) hypertension (5) Nicotine dependence Status: Acute Qualifiers: Nicotine product type: cigarettes Substance use status: in withdrawal Qualified Code(s): F17.213 - Nicotine dependence, cigarettes, with withdrawal (6) Hepatitis C Status: Chronic Qualifiers: Viral hepatitis chronicity: carrier Qualified Code(s): B18.2 - Chronic viral hepatitis C (7) Myocardial infarction Status: Resolved Qualifiers: Myocardial infarction type: unspecified Involved coronary artery: unspecified coronary artery Qualified Code(s): I21.9 - Acute myocardial infarction, unspecified - AMA Did Patient Leave Against Medical Advice: No CIWA Score - CIWA Score Nausea/Vomitin-No Nausea/No Vomiting Muscle Tremors: 1-None Visible, but Ava Anxiety: 1-Mildly Anxious Agitation: 1-Slight > Activity Paroxysmal Sweats: No Perspiration Orientation: 0-Oriented Tacttile Disturbances: 0-None Auditory Disturbances: 0-None Visual Disturbances: 0-None Headache: 0-None Present CIWA-Ar Total Score: 3
== END 2019-07-17 09:15 | disposition home or self-care (01) | DRG 897 ==
LOC: YASAS 16:38 → Y3N 17:53
PROVIDERS: ADMIT Allergy & Immunology; ATTEND Allergy & Immunology
PROC: HZ2ZZZZ Detoxification Services for Substance Abuse Treatment (ICD-10-PCS; principal; 2019-07-14)
DX: F10.230 Alcohol dependence with withdrawal, uncomplicated (principal); J45.22 Mild intermittent asthma with status asthmaticus; F10.24 Alcohol dependence with alcohol-induced mood disorder; F10.282 Alcohol dependence with alcohol-induced sleep disorder; F17.213 Nicotine dependence, cigarettes, with withdrawal; F41.0 Panic disorder [episodic paroxysmal anxiety]; F43.10 Post-traumatic stress disorder, unspecified; I10 Essential (primary) hypertension; E78.5 Hyperlipidemia, unspecified; B18.2 Chronic viral hepatitis C; I25.2 Old myocardial infarction; D64.9 Anemia, unspecified; I25.10 Atherosclerotic heart disease of native coronary artery without angina pectoris; M41.9 Scoliosis, unspecified
CPT/HCPCS: 81025; J0735; Q0162